=== PATIENT | female | born 1980 | race Caucasian/White ===

== ENCOUNTER 2017-03-05 18:38 | Emergency (ER) | payer SELFPAY ==
[2017-03-05] MEDS ORDERED: ONDANSETRON 4 MG/2 ML VIAL IVP ONE (19:00)
[2017-03-05] MEDS ORDERED: NS 1,000 ML IV ONE (19:00)
[2017-03-05] MEDS ORDERED: HALOPERIDOL LACT 5 MG/ML INJ IVP ONE (19:00)
--- NOTE | 2017-03-05 19:05 | EDPHY ---
H & P Stated Complaint: mid-upper abd pain with vomiting x1 day Time Seen by Provider: 03/05/17 18:43 HPI/ROS: Chief Complaint: Abdominal pain, nausea, vomiting HPI: 36 year wounds been having nausea vomiting abdominal pain since she woke up this morning. She has been vomiting "stomach acid ". No blood or coffee grounds. No diarrhea or constipation. No dark black stools or blood. She is complaining of epigastric pain. She has had similar episodes in the past but not this severe. She did take some Zofran without any relief. She also used some marijuana which did not help her either. Last menstrual. Was 3 weeks ago was normal. She is . Denies any chest pain shortness of breath. No fevers or chills. No headache. ROS: 10 point Review of Systems is negative except as noted in the HPI. PMH: Hypothyroidism Medications: Synthroid, oral contraceptives Allergies: Sulfa Social History: No smoking, daily alcohol, daily marijuana Family History: non-contributory Physical Exam: Gen: Awake, Alert, uncomfortable appearing HEENT: Nose: no rhinorrhea Eyes: PERRLA, EOMI Mouth: Moist mucosa Neck: Supple, no JVD Chest: nontender, lungs clear to auscultation Heart: S1, S2 normal, no murmur Abd: Soft, the mild epigastric tenderness, no right upper quadrant tenderness, no lower abdominal tenderness, abdomen is soft, there is no guarding Back: no CVA tenderness, no midline tenderness Ext: no edema, non-tender Skin: no rash Neuro: CN II-XII intact, Sensation grossly intact, Strength 5/5 in bilateral upper and lower extremities - Personal History LMP (Females 10-55): 8-14 Days Ago Current Tetanus/Diphtheria Vaccine: Yes Current Tetanus Diphtheria and Acellular Pertussis (TDAP): Yes - Medical/Surgical History Hx Asthma: No Hx Chronic Respiratory Disease: No Hx Diabetes: No Hx Cardiac Disease: No Hx Renal Disease: No Hx Cirrhosis: No Hx Alcoholism: No Hx HIV/AIDS: No Hx Splenectomy or Spleen Trauma: No Other PMH: medical- thyroid. sx-tonsils - Social History Smoking Status: Never smoked Constitutional: Initial Vital Signs Temperature (C) 36.7 C 03/05/17 19:00 Heart Rate 81 03/05/17 19:00 Respiratory Rate 22 H 03/05/17 19:00 Blood Pressure 125/94 H 03/05/17 19:00 O2 Delivery Mode Room Air Allergies/Adverse Reactions: Sulfa (Sulfonamide Antibiotics) Allergy (Verified 03/05/17 18:49) Home Medications: Medication Instructions Recorded Ortho Tri-Cyclen 28 Tablet 03/05/17 Synthroid 03/05/17 Zofran Odt 03/05/17 Medical Decision Making ED Course/Re-evaluation: Patient presenting with epigastric pain nausea and vomiting. She has a benign exam. Laboratory evaluations are unremarkable. She is improved after Zofran, Haldol and a GI cocktail. Pain is done with 2 in 10. She is tolerating oral fluids. Symptoms are consistent likely that gastritis. Have instructed her to take omeprazole daily. Will send her home with some oral Zofran. Follow up with primary care physician in 2-3 days for further evaluation. She might need a referral to GI for endoscopy. - Data Points Laboratory Results: Laboratory Results 03/05/17 19:05 03/05/17 19:05 03/05/17 03/05/17 03/05/17 20:40 19:05 19:05 WBC RBC Hgb Hct MCV MCH MCHC RDW Plt Count MPV Neut % (Auto) Lymph % (Auto) [place] % (Auto) Eos % (Auto) Baso % (Auto) Nucleat RBC Rel Count Absolute Neuts (auto) Absolute Lymphs (auto) Absolute Monos (auto) Absolute Eos (auto) Absolute Basos (auto) Absolute Nucleated RBC Immature Gran % Immature Gran # Sodium 138 mEq/L mEq/L (134-144) Potassium 3.9 mEq/L mEq/L (3.5-5.2) Chloride 101 mEq/L mEq/L (97-110) Carbon Dioxide 18 mEq/l L mEq/l (22-31) Anion Gap 19 mEq/L H mEq/L (8-16) BUN 9 mg/dL mg/dL (7-23) Creatinine 0.7 mg/dL mg/dL (0.6-1.0) Estimated GFR > 60 Glucose 118 mg/dL H mg/dL (70-100) Calcium 10.1 mg/dL mg/dL (8.5-10.4) Total Bilirubin 1.2 mg/dL mg/dL (0.1-1.4) AST 36 IU/L IU/L (14-46) ALT 45 IU/L IU/L (9-52) Alkaline Phosphatase 46 IU/L IU/L (38-126) Total Protein 7.5 g/dL g/dL (6.3-8.2) Albumin 4.7 g/dL g/dL (3.5-5.0) Lipase 71 IU/L IU/L (23-300) Beta HCG, Qual NEGATIVE Urine Color Pending Urine Appearance Pending Urine pH Pending Ur Specific Halliday Pending Urine Protein Pending Urine Ketones Pending Urine Blood Pending Urine Nitrate Pending Urine Bilirubin Pending Urine Urobilinogen Pending Ur Leukocyte Esterase Pending Urine Glucose Pending 03/05/17 19:05 WBC 7.17 10^3/uL 10^3/uL (3.80-9.50) RBC 4.01 10^6/uL L 10^6/uL (4.18-5.33) Hgb 12.9 g/dL g/dL (12.6-16.3) Hct 37.2 % L % (38.0-47.0) MCV 92.8 fL fL (81.5-99.8) MCH 32.2 pg pg (27.9-34.1) MCHC 34.7 g/dL g/dL (32.4-36.7) RDW 11.9 % % (11.5-15.2) Plt Count 224 10^3/uL 10^3/uL (150-400) MPV 11.7 fL fL (8.7-11.7) Neut % (Auto) 78.6 % H % (39.3-74.2) Lymph % (Auto) 15.6 % % (15.0-45.0) [place] % (Auto) 5.3 % % (4.5-13.0) Eos % (Auto) 0.1 % L % (0.6-7.6) Baso % (Auto) 0.1 % L % (0.3-1.7) Nucleat RBC Rel Count 0.0 % % (0.0-0.2) Absolute Neuts (auto) 5.63 10^3/uL 10^3/uL (1.70-6.50) Absolute Lymphs (auto) 1.12 10^3/uL 10^3/uL (1.00-3.00) Absolute Monos (auto) 0.38 10^3/uL 10^3/uL (0.30-0.80) Absolute Eos (auto) 0.01 10^3/uL L 10^3/uL (0.03-0.40) Absolute Basos (auto) 0.01 10^3/uL L 10^3/uL (0.02-0.10) Absolute Nucleated RBC 0.00 10^3/uL 10^3/uL (0-0.01) Immature Gran % 0.3 % % (0.0-1.1) Immature Gran # 0.02 10^3/uL 10^3/uL (0.00-0.10) Sodium Potassium Chloride Carbon Dioxide Anion Gap BUN Creatinine Estimated GFR Glucose Calcium Total Bilirubin AST ALT Alkaline Phosphatase Total Protein Albumin Lipase Beta HCG, Qual Urine Color Urine Appearance Urine pH Ur Specific Halliday Urine Protein Urine Ketones Urine Blood Urine Nitrate Urine Bilirubin Urine Urobilinogen Ur Leukocyte Esterase Urine Glucose Medications Given: Discontinued Medications Al Hydroxide/Mg Hydroxide (Maalox Susp) 30 ml PO ONCE ONE Stop: 03/05/17 20:16 Last Admin: 03/05/17 20:18 Dose: 30 ml Haloperidol Lactate (Haldol Injection) 2.5 mg IVP EDNOW ONE Stop: 03/05/17 19:01 Last Admin: 03/05/17 19:37 Dose: 2.5 mg Sodium Chloride (Ns) 1,000 mls @ 0 mls/hr IV ONCE ONE; Wide Open PRN Reason: Protocol Stop: 03/05/17 19:01 Last Admin: 03/05/17 19:35 Dose: 1,000 mls Lidocaine (Lidocaine 2% Viscous) 15 ml PO ONCE ONE Stop: 03/05/17 20:16 Last Admin: 03/05/17 20:18 Dose: 15 ml Ondansetron HCl (Zofran) 4 mg IVP EDNOW ONE Stop: 03/05/17 19:01 Last Admin: 03/05/17 19:35 Dose: 4 mg Departure - Departure Disposition: Home, Routine, Self-Care Clinical Impression: Gastritis, Nausea & vomiting Condition: Good Instructions: Gastritis (ED), Acute Nausea and Vomiting (ED), Ondansetron (By mouth) Additional Instructions: Take oral antacid a medications every day, available [id number]. May take Zofran as needed for nausea vomiting. I would recommend that you not use cannabis when you are having abdominal pain, nausea or vomiting. Follow up with primary care physician in 2-3 days for further evaluation and possible referral to Gastroenterology. Return to the emergency department for worsening abdominal pain, uncontrolled nausea or vomiting. Vomiting blood, dark black stools, or any other concerns. Referrals: HARINDER ARMSTRONG [Primary Care Provider] - As per Instructions
[2017-03-05 19:23] LABS: % IMMATURE GRANULYOCYTES 0.3 % (0.0-1.1); ABSOLUTE IMMATURE GRANULOCYTES 0.02 10^3/uL (0.00-0.10); ADD DIFF? NO; ADD MORPH? NO; ADD SCAN? NO; ATYPICAL LYMPHOCYTE FLAG 10 (0-99); FRAGMENT RBC FLAG 0 (0-99); HEMATOCRIT 37.2 % (38.0-47.0); HEMOGLOBIN 12.9 g/dL (12.6-16.3); LEFT SHIFT FLG 0 (0-99); LIPEMIA HEMOLYSIS FLAG 90 (0-99); MEAN CELL HEMOGLOBIN 32.2 pg (27.9-34.1); MEAN CELL HEMOGLOBIN CONCENTR. 34.7 g/dL (32.4-36.7); MEAN CELL VOLUME 92.8 fL (81.5-99.8); MEAN PLATELET VOLUME 11.7 fL (8.7-11.7); PLATELET CLUMPS FLAG 0 (0-99); PLATELET COUNT 224 10^3/uL (150-400); RED BLOOD CELL COUNT 4.01 10^6/uL (4.18-5.33); RED CELL DISTRIBUTION WIDTH 11.9 % (11.5-15.2)
[2017-03-05 19:34] LABS: ALANINE AMINOTRANSFERASE 45 IU/L (9-52); ALBUMIN 4.7 g/dL (3.5-5.0); ALKALINE PHOSPHATASE 46 IU/L (38-126); ANION GAP 19 mEq/L (8-16); ASPARTATE AMINOTRANSFERASE 36 IU/L (14-46); BILIRUBIN,TOTAL 1.2 mg/dL (0.1-1.4); CALCIUM 10.1 mg/dL (8.5-10.4); CARBON DIOXIDE 18 mEq/l (22-31); CHLORIDE 101 mEq/L (97-110); CREATININE 0.7 mg/dL (0.6-1.0); GLOMERULAR FILTRATION RATE > 60; GLUCOSE 118 mg/dL (70-100); POTASSIUM 3.9 mEq/L (3.5-5.2); SODIUM 138 mEq/L (134-144); TOTAL PROTEIN 7.5 g/dL (6.3-8.2)
[2017-03-05] MEDS ORDERED: MAG HYDROX/AL HYDROX/SIMETH 30 ML UDCUP PO ONE (20:15)
[2017-03-05] MEDS ORDERED: LIDOCAINE 2% VISCOUS 15 ML UDCUP PO ONE (20:15)
[2017-03-05 20:47] LABS: COLOR YELLOW; LEUKOCYTE ESTERASE,URINE 1+ (NEGATIVE); NITRITE,URINE NEGATIVE (NEGATIVE)
[2017-03-05] MEDS ORDERED: ONDANSETRON 4MG PREPACK#2 BTL TAKEHOME ONE (20:51)
[2017-03-05 20:57] LABS: MUCUS TRACE /lpf (NONE-1+)
[2017-03-05 21:07] VITALS: BP 134/86; PULSE 82; RESP 20; TEMP 98.2; O2SAT 96
== END 2017-03-05 21:07 | disposition home or self-care (01) ==
LOC: CED 18:38
DX: K29.70 Gastritis, unspecified, without bleeding (principal); E86.9 Volume depletion, unspecified
CPT/HCPCS: 80053-PO; 81003-PO; 81015-PO; 83690-PO; 84703-PO; 85025-PO; 96374; J2405

== ENCOUNTER 2017-09-12 10:30 | Emergency (ER) | payer MEDICAID ==
[2017-09-12] MEDS ORDERED: NS 500 ML IV ONE (10:41)
[2017-09-12] MEDS ORDERED: HALOPERIDOL LACT 5 MG/ML INJ IVP ONE (10:53)
[2017-09-12] MEDS ORDERED: METOCLOPRAMIDE 10 MG/2 ML VIAL IVP ONE (10:54)
[2017-09-12] MEDS ORDERED: PANTOPRAZOLE SODIUM 40 MG VIAL IVP ONE (10:54)
[2017-09-12 10:58] LABS: PLATELET COUNT 230 10^3/uL (150-400)
--- NOTE | 2017-09-12 11:00 | EDPHY ---
H & P Time Seen by Provider: 09/12/17 10:44 HPI/ROS: CHIEF COMPLAINT: Epigastric pain, vomiting HISTORY OF PRESENT ILLNESS: 36-year-old female presents with a 3 day history of epigastric pain and vomiting. Onset of moderate to severe epigastric pain 3 days ago, associated with multiple episodes of vomiting. The pain is alleviated after vomiting, but gradually returns. Unable to tolerate oral fluids or food today. Zofran and Phenergan with some relief prior to today. History of multiple prior similar episodes. Seen in this emergency department in February 2017 and referred to Gastroenterology. She had a follow-up appointment with [facility], felt better at that time and did not schedule endoscopy. History of daily marijuana use. Infrequent marijuana use for the last few days. REVIEW OF SYSTEMS: Constitutional: No fever, no chills Eyes: No visual changes ENT: No sore throat Respiratory: No cough, no shortness of breath Cardiac: No chest pain Genitourinary: no dysuria Musculoskeletal: No leg pain or swelling Skin: No rash Neurological: No headache Psychiatric: No depression Past Medical/Surgical History: Recurrent vomiting Social History: Single, employed Smoking Status: Never smoked Physical Exam: General Appearance: Alert, appears uncomfortable Eyes: Pupils equal and round, no conjunctival pallor or injection ENT, Mouth: Mucous membranes slightly dry Neck: Normal inspection Respiratory: Lungs are clear to auscultation Cardiovascular: Regular rate and rhythm Gastrointestinal: Abdomen is soft, epigastric tenderness Neurological: A&O, nonfocal, normal gait Skin: Warm and dry, no rash Extremities: Normal inspection Psychiatric: Mood and affect normal Constitutional: Initial Vital Signs Temperature (C) 36.6 C 09/12/17 10:35 Heart Rate 85 09/12/17 10:35 Respiratory Rate 20 09/12/17 10:35 Blood Pressure 157/76 H 09/12/17 10:35 O2 Sat (%) 97 09/12/17 10:35 O2 Delivery Mode Room Air Allergies/Adverse Reactions: Sulfa (Sulfonamide Antibiotics) Allergy (Verified 09/12/17 10:39) unsure Home Medications: Medication Instructions Recorded Ortho Tri-Cyclen 28 Tablet 03/05/17 Zofran Odt 03/05/17 Carafate 1 GM (*) 09/12/17 Phenergan 09/12/17 Medical Decision Making ED Course/Re-evaluation: This patient presents with recurrent vomiting and epigastric pain. Clinical scenario is most consistent with cyclic vomiting syndrome. IV normal saline 1 L , Haldol 2.5 mg IV and Protonix 40 mg IV given, followed by Reglan and Benadryl IV. 12:30 p.m.-epigastric pain and nausea have completely resolved. Abdomen is soft and nontender. Wants to go home. Will follow up with GI. Differential Diagnosis: Differential diagnosis includes though it is not limited to appendicitis, cholecystitis, diverticulitis, pyelonephritis, bowel perforation, small bowel obstruction. - Data Points Laboratory Results: Laboratory Results 09/12/17 10:46 09/12/17 10:46 09/12/17 09/12/17 09/12/17 10:46 10:46 10:46 WBC 7.61 10^3/uL 10^3/uL (3.80-9.50) RBC 4.16 10^6/uL L 10^6/uL (4.18-5.33) Hgb 13.2 g/dL g/dL (12.6-16.3) Hct 37.7 % L % (38.0-47.0) MCV 90.6 fL fL (81.5-99.8) MCH 31.7 pg pg (27.9-34.1) MCHC 35.0 g/dL g/dL (32.4-36.7) RDW 11.9 % % (11.5-15.2) Plt Count 230 10^3/uL 10^3/uL (150-400) MPV 10.9 fL fL (8.7-11.7) Neut % (Auto) 80.3 % H % (39.3-74.2) Lymph % (Auto) 14.2 % L % (15.0-45.0) [place] % (Auto) 4.2 % L % (4.5-13.0) Eos % (Auto) 0.7 % % (0.6-7.6) Baso % (Auto) 0.3 % % (0.3-1.7) Nucleat RBC Rel Count 0.0 % % (0.0-0.2) Absolute Neuts (auto) 6.12 10^3/uL 10^3/uL (1.70-6.50) Absolute Lymphs (auto) 1.08 10^3/uL 10^3/uL (1.00-3.00) Absolute Monos (auto) 0.32 10^3/uL 10^3/uL (0.30-0.80) Absolute Eos (auto) 0.05 10^3/uL 10^3/uL (0.03-0.40) Absolute Basos (auto) 0.02 10^3/uL 10^3/uL (0.02-0.10) Absolute Nucleated RBC 0.00 10^3/uL 10^3/uL (0-0.01) Immature Gran % 0.3 % % (0.0-1.1) Immature Gran # 0.02 10^3/uL 10^3/uL (0.00-0.10) Sodium 138 mEq/L mEq/L (135-145) Potassium 3.8 mEq/L mEq/L (3.5-5.2) Chloride 101 mEq/L mEq/L (97-110) Carbon Dioxide 19 mEq/l L mEq/l (22-31) Anion Gap 18 mEq/L H mEq/L (8-16) BUN 9 mg/dL mg/dL (7-23) Creatinine 0.7 mg/dL mg/dL (0.6-1.0) Estimated GFR > 60 Glucose 132 mg/dL H mg/dL (70-100) Calcium 10.3 mg/dL mg/dL (8.5-10.4) Total Bilirubin 0.8 mg/dL mg/dL (0.1-1.4) Conjugated Bilirubin 0.4 mg/dL mg/dL (0.0-0.5) Unconjugated Bilirubin 0.4 mg/dL mg/dL (0.0-1.1) AST 30 IU/L IU/L (14-46) ALT 29 IU/L IU/L (9-52) Alkaline Phosphatase 43 IU/L IU/L (38-126) Total Protein 8.4 g/dL H g/dL (6.3-8.2) Albumin 4.7 g/dL g/dL (3.5-5.0) Lipase 81 IU/L IU/L (23-300) Beta HCG, Qual NEGATIVE Medications Given: Discontinued Medications Diphenhydramine HCl (Benadryl Injection) 25 mg IVP EDNOW ONE Stop: 09/12/17 10:55 Last Admin: 09/12/17 11:11 Dose: 25 mg Haloperidol Lactate (Haldol Injection) 2.5 mg IVP EDNOW ONE Stop: 09/12/17 10:54 Last Admin: 09/12/17 11:14 Dose: 2.5 mg Sodium Chloride (Ns) 500 mls @ 1,000 mls/hr IV ONCE ONE PRN Reason: Protocol Stop: 09/12/17 11:10 Last Admin: 09/12/17 10:46 Dose: 500 mls Metoclopramide HCl (Reglan Injection) 10 mg IVP EDNOW ONE Stop: 09/12/17 10:55 Last Admin: 09/12/17 11:26 Dose: 10 mg Pantoprazole Sodium (Protonix) 40 mg IVP EDNOW ONE Stop: 09/12/17 10:55 Last Admin: 09/12/17 11:04 Dose: 40 mg Departure - Departure Disposition: Home, Routine, Self-Care Clinical Impression: Vomiting Qualifiers: Vomiting type: cyclical vomiting Vomiting Intractability: intractable Nausea presence: with nausea Qualified Code(s): G43.A1 - Cyclical vomiting, intractable Condition: Good Instructions: Acute Nausea and Vomiting (ED), Cyclic Vomiting Syndrome (ED) Additional Instructions: 1. Clear liquids for 24 hours. 2. Advance diet as tolerated. I suggest the BRAT diet to start: bananas, rice, applesauce and toast. 3. Return for worsening symptoms, persistent vomiting, abdominal pain, any concerns. For. Call your hospital monitor to make an appointment. Referrals: HARINDER ARMSTRONG [Primary Care Provider] - As per Instructions
[2017-09-12 12:32] VITALS: BP 136/88
== END 2017-09-12 12:33 | disposition home or self-care (01) ==
LOC: CED 10:30
DX: G43.A1 Cyclical vomiting, in migraine, intractable (principal); E86.9 Volume depletion, unspecified
CPT/HCPCS: 80048-PO; 80076-PO; 83690-PO; 84703-PO; 85025-PO; 96374; J1200; J1630; J2765